=== PATIENT | female | born 1995 | race African-American/Black ===

== ENCOUNTER 2025-02-15 14:34 | Emergency (ER) | payer OTHER ==
[~2025-02-15] VITALS: Ht 157.5 cm; Wt 115.2 kg
[2025-02-15] MEDS ORDERED: NS 1,000 ML IV SCH (15:55)
[2025-02-15 16:16] LABS: BASOPHILS ABSOLUTE AUTO 0.05 K/mm3 (0.00-0.23); BASOPHILS PERCENT AUTO 1 % (0-2); EOSINOPHILS ABSOLUTE AUTO 0.15 K/mm3 (0.00-0.68); EOSINOPHILS PERCENT AUTO 2 % (0-6); Hematocrit 39.0 % (33.0-51.0); Hemoglobin 12.8 g/dL (11.5-16.0); IMMATURE GRAN ABSOLUTE AUTO 0.06 K/mm3 (0.00-0.10); IMMATURE GRAN PERCENT AUTO 1 % (0-1); LYMPHOCYTES ABSOLUTE AUTO 2.29 K/mm3 (0.84-5.20); LYMPHOCYTES PERCENT AUTO 31 % (21-46); MONOCYTES ABSOLUTE AUTO 0.72 K/mm3 (0.16-1.47); MONOCYTES PERCENT AUTO 10 % (4-13); Mean Corpuscular HGB Conc 32.8 g/dL (31.5-36.5); Mean Corpuscular Volume 88 fL (80-100); NEUTROPHILS ABSOLUTE AUTO 4.07 K/mm3 (1.96-9.15); NEUTROPHILS PERCENT AUTO 56 % (41-73); NRBC ABSOLUTE 0.00 K/mm3 (0.00-0.02); NRBC Auto 0.0 /100 WBC (0.0-0.2); Platelet Count 251 K/mm3 (150-400); RDW Coefficient Variation 12.7 % (11.7-14.2); RDW Standard Deviation 41.1 fL (35.1-46.3)
[2025-02-15 16:45] LABS: Anion Gap 10.0 mmol/L (3-11); Blood Urea Nitrogen 7.0 mg/dL (8-24); CO2, Blood 23.0 mmol/L (21-32); Calcium, Blood 8.9 mg/dL (8.5-10.1); Chloride, Blood 106.0 mmol/L (98-108); Creatinine, Blood 0.68 mg/dL (0.40-1.00); Glucose, Blood 156.0 mg/dL (70-99); Magnesium, Blood 1.8 mg/dL (1.6-2.4); Potassium, Blood 3.5 mmol/L (3.5-5.5); Sodium, Blood 135.0 mmol/L (136-145); Thyroid Stimulating Hormone 4.31 uIU/mL (0.360-4.800)
[2025-02-15] MEDS ORDERED: LORazepam 2 MG/ML 1ML Injection IV ONE (17:00)
[2025-02-15] MEDS ORDERED: LORA.5 PO (18:18)
== END 2025-02-15 18:37 | disposition home or self-care (01) ==
LOC: ER 14:34
PROVIDERS: Emergency Medicine
DX: F41.0 Panic disorder [episodic paroxysmal anxiety] (principal)
CPT/HCPCS: 71045; 71260; 80048; 83735; 84439; 84443; 85025; 85379; 93005; 93010; 96374-59; 99284-25; A9270; J2060; J7030; Q9967

== ENCOUNTER 2025-02-28 17:13 | Emergency (ER) | payer OTHER ==
[~2025-02-28] VITALS: Ht 157.5 cm; Wt 115.2 kg
[~2025-02-28 17:13] MED LIST: LORA.5 PO
[2025-02-28] MEDS ORDERED: NS 1,000 ML IV SCH (17:20)
[2025-02-28] MEDS ORDERED: Ondansetron HCl 2 MG / ML 2ML Vial IV ONE (17:20)
[2025-02-28] MEDS ORDERED: Ketorolac Tromethamine 15mg Vial IV ONE (17:20)
[2025-02-28] MEDS ORDERED: RISP.25 PO (18:43)
[2025-02-28] MEDS ORDERED: LORA.5 PO ×2 (18:43→19:36)
[2025-02-28] MEDS ORDERED: LORazepam 2 MG/ML 1ML Injection IV ONE (18:45)
[2025-02-28 18:51] LABS: BASOPHILS ABSOLUTE AUTO 0.05 K/mm3 (0.00-0.23); BASOPHILS PERCENT AUTO 1 % (0-2); EOSINOPHILS ABSOLUTE AUTO 0.09 K/mm3 (0.00-0.68); EOSINOPHILS PERCENT AUTO 1 % (0-6); Hematocrit 40.0 % (33.0-51.0); Hemoglobin 13.3 g/dL (11.5-16.0); IMMATURE GRAN ABSOLUTE AUTO 0.03 K/mm3 (0.00-0.10); IMMATURE GRAN PERCENT AUTO 0 % (0-1); LYMPHOCYTES ABSOLUTE AUTO 2.06 K/mm3 (0.84-5.20); LYMPHOCYTES PERCENT AUTO 28 % (21-46); MONOCYTES ABSOLUTE AUTO 0.59 K/mm3 (0.16-1.47); MONOCYTES PERCENT AUTO 8 % (4-13); Mean Corpuscular HGB Conc 33.3 g/dL (31.5-36.5); Mean Corpuscular Volume 86 fL (80-100); NEUTROPHILS ABSOLUTE AUTO 4.61 K/mm3 (1.96-9.15); NEUTROPHILS PERCENT AUTO 62 % (41-73); NRBC ABSOLUTE 0.00 K/mm3 (0.00-0.02); NRBC Auto 0.0 /100 WBC (0.0-0.2); Platelet Count 233 K/mm3 (150-400); RDW Coefficient Variation 12.7 % (11.7-14.2); RDW Standard Deviation 39.8 fL (35.1-46.3)
[2025-02-28 19:04] LABS: Alanine Aminotransfer (ALT/SGP 22.0 U/L (12-78); Albumin, Blood 3.7 g/dL (3.4-5.0); Albumin/Globulin Ratio 0.8 (0.8-1.8); Anion Gap 8.0 mmol/L (3-11); Aspartate Aminotrans (AST/SGOT 15.0 U/L (12-37); Bilirubin, Total 0.1 mg/dL (0.1-1.0); Blood Urea Nitrogen 11.0 mg/dL (8-24); CO2, Blood 27.0 mmol/L (21-32); Calcium, Blood 9.8 mg/dL (8.5-10.1); Chloride, Blood 106.0 mmol/L (98-108); Creatinine, Blood 0.67 mg/dL (0.40-1.00); Globulin, Blood 4.4 g/dL (2.2-4.0); Glucose, Blood 168.0 mg/dL (70-99); Potassium, Blood 3.7 mmol/L (3.5-5.5); Sodium, Blood 137.0 mmol/L (136-145); Total Protein, Blood 8.1 g/dL (6.4-8.2)
== END 2025-02-28 21:43 | disposition home or self-care (01) ==
LOC: ER 17:13
PROVIDERS: Student in an Organized Health Care Education/Training Program
DX: F41.0 Panic disorder [episodic paroxysmal anxiety] (principal); Z76.0 Encounter for issue of repeat prescription; Z79.899 Other long term (current) drug therapy
CPT/HCPCS: 71046; 80053; 84484; 85025; 93005; 93010; 96374; 99284-25; A9270; J2060

== ENCOUNTER 2025-03-01 13:19 | Emergency (ER) | payer OTHER ==
[~2025-03-01] VITALS: Ht 157.5 cm; Wt 24.5 kg
[~2025-03-01 13:19] MED LIST changes: +RISP.25 PO
[2025-03-01 14:47] LABS: BASOPHILS ABSOLUTE AUTO 0.05 K/mm3 (0.00-0.23); BASOPHILS PERCENT AUTO 1 % (0-2); EOSINOPHILS ABSOLUTE AUTO 0.06 K/mm3 (0.00-0.68); EOSINOPHILS PERCENT AUTO 1 % (0-6); Hematocrit 39.6 % (33.0-51.0); Hemoglobin 13.5 g/dL (11.5-16.0); IMMATURE GRAN ABSOLUTE AUTO 0.03 K/mm3 (0.00-0.10); IMMATURE GRAN PERCENT AUTO 0 % (0-1); LYMPHOCYTES ABSOLUTE AUTO 1.94 K/mm3 (0.84-5.20); LYMPHOCYTES PERCENT AUTO 26 % (21-46); MONOCYTES ABSOLUTE AUTO 0.74 K/mm3 (0.16-1.47); MONOCYTES PERCENT AUTO 10 % (4-13); Mean Corpuscular HGB Conc 34.1 g/dL (31.5-36.5); Mean Corpuscular Volume 86 fL (80-100); NEUTROPHILS ABSOLUTE AUTO 4.63 K/mm3 (1.96-9.15); NEUTROPHILS PERCENT AUTO 62 % (41-73); NRBC ABSOLUTE 0.00 K/mm3 (0.00-0.02); NRBC Auto 0.0 /100 WBC (0.0-0.2); Platelet Count 236 K/mm3 (150-400); RDW Coefficient Variation 12.9 % (11.7-14.2); RDW Standard Deviation 39.8 fL (35.1-46.3)
[2025-03-01 15:11] LABS: Alanine Aminotransfer (ALT/SGP 21.0 U/L (12-78); Albumin, Blood 3.7 g/dL (3.4-5.0); Albumin/Globulin Ratio 0.8 (0.8-1.8); Anion Gap 7.0 mmol/L (3-11); Aspartate Aminotrans (AST/SGOT 13.0 U/L (12-37); Bilirubin, Total 0.2 mg/dL (0.1-1.0); Blood Urea Nitrogen 10.0 mg/dL (8-24); CO2, Blood 27.0 mmol/L (21-32); Calcium, Blood 9.7 mg/dL (8.5-10.1); Chloride, Blood 104.0 mmol/L (98-108); Creatinine, Blood 0.65 mg/dL (0.40-1.00); Globulin, Blood 4.6 g/dL (2.2-4.0); Glucose, Blood 95.0 mg/dL (70-99); Potassium, Blood 3.7 mmol/L (3.5-5.5); Sodium, Blood 134.0 mmol/L (136-145); Thyroid Stimulating Hormone 2.96 uIU/mL (0.360-4.800); Total Protein, Blood 8.3 g/dL (6.4-8.2)
== END 2025-03-01 17:35 | disposition home or self-care (01) ==
LOC: ER 13:19
PROVIDERS: Student in an Organized Health Care Education/Training Program
DX: F41.0 Panic disorder [episodic paroxysmal anxiety] (principal); E87.1 Hypo-osmolality and hyponatremia; Z79.899 Other long term (current) drug therapy
CPT/HCPCS: 80053; 84439; 84443; 84481; 84484; 85025; 93005; 93010; 99283-25; A9270

== ENCOUNTER 2025-03-03 16:57 | Emergency (ER) | payer OTHER ==
[~2025-03-03] VITALS: Ht 157.5 cm; Wt 115.2 kg
[2025-03-03 17:36] LABS: BASOPHILS ABSOLUTE AUTO 0.05 K/mm3 (0.00-0.23); BASOPHILS PERCENT AUTO 1 % (0-2); EOSINOPHILS ABSOLUTE AUTO 0.12 K/mm3 (0.00-0.68); EOSINOPHILS PERCENT AUTO 2 % (0-6); Hematocrit 39.0 % (33.0-51.0); Hemoglobin 12.8 g/dL (11.5-16.0); IMMATURE GRAN ABSOLUTE AUTO 0.03 K/mm3 (0.00-0.10); IMMATURE GRAN PERCENT AUTO 0 % (0-1); LYMPHOCYTES ABSOLUTE AUTO 2.22 K/mm3 (0.84-5.20); LYMPHOCYTES PERCENT AUTO 30 % (21-46); MONOCYTES ABSOLUTE AUTO 0.69 K/mm3 (0.16-1.47); MONOCYTES PERCENT AUTO 9 % (4-13); Mean Corpuscular HGB Conc 32.8 g/dL (31.5-36.5); Mean Corpuscular Volume 87 fL (80-100); NEUTROPHILS ABSOLUTE AUTO 4.31 K/mm3 (1.96-9.15); NEUTROPHILS PERCENT AUTO 58 % (41-73); NRBC ABSOLUTE 0.00 K/mm3 (0.00-0.02); NRBC Auto 0.0 /100 WBC (0.0-0.2); Platelet Count 229 K/mm3 (150-400); RDW Coefficient Variation 12.8 % (11.7-14.2); RDW Standard Deviation 40.5 fL (35.1-46.3)
[2025-03-03 18:16] LABS: Alanine Aminotransfer (ALT/SGP 24.0 U/L (12-78); Albumin, Blood 3.5 g/dL (3.4-5.0); Albumin/Globulin Ratio 0.8 (0.8-1.8); Anion Gap 10.0 mmol/L (3-11); Aspartate Aminotrans (AST/SGOT 19.0 U/L (12-37); Bilirubin, Total 0.1 mg/dL (0.1-1.0); Blood Urea Nitrogen 12.0 mg/dL (8-24); CO2, Blood 25.0 mmol/L (21-32); Calcium, Blood 10.0 mg/dL (8.5-10.1); Chloride, Blood 107.0 mmol/L (98-108); Creatinine, Blood 0.74 mg/dL (0.40-1.00); Globulin, Blood 4.4 g/dL (2.2-4.0); Glucose, Blood 134.0 mg/dL (70-99); Potassium, Blood 3.9 mmol/L (3.5-5.5); Sodium, Blood 138.0 mmol/L (136-145); Total Protein, Blood 7.9 g/dL (6.4-8.2)
[2025-03-03] MEDS ORDERED: LORazepam 2 MG/ML 1ML Injection IV ONE (20:50)
[2025-03-04] MEDS ORDERED: HYDHCL25 PO (20:47)
== END 2025-03-03 22:46 | disposition home or self-care (01) ==
LOC: ER 16:57
PROVIDERS: Student in an Organized Health Care Education/Training Program
DX: F41.1 Generalized anxiety disorder (principal); Z79.899 Other long term (current) drug therapy
CPT/HCPCS: 71045; 71260; 80053; 84484; 85025; 85379; 93005; 93010; 96374-59; 99284-25; A9270; J2060; Q9967

== ENCOUNTER 2025-03-04 17:58 | Emergency (ER) | payer OTHER ==
[~2025-03-04] VITALS: Ht 157.5 cm; Wt 121.6 kg
[2025-03-04] MEDS ORDERED: Lidocaine/Tetracaine/Epinephr 3 ML GEL SYRINGE TOP ONE (19:30)
[2025-03-04] MEDS ORDERED: HYDHCL25 PO (20:47)
== END 2025-03-04 20:58 | disposition home or self-care (01) ==
LOC: ER 17:58
DX: F41.0 Panic disorder [episodic paroxysmal anxiety] (principal); Z79.899 Other long term (current) drug therapy
CPT/HCPCS: 99282; A9270

== ENCOUNTER 2025-03-05 17:39 | Emergency (ER) | payer OTHER ==
[~2025-03-05] VITALS: Ht 157.5 cm; Wt 121.6 kg
[~2025-03-05 17:39] MED LIST changes: +HYDHCL25 PO
[2025-03-06] MEDS ORDERED: LORA.5 PO (19:17)
== END 2025-03-05 21:30 | disposition home or self-care (01) ==
LOC: ER 17:39
DX: F41.9 Anxiety disorder, unspecified (principal); Z79.899 Other long term (current) drug therapy
CPT/HCPCS: 93005; 93010; 99283-25

== ENCOUNTER 2025-03-06 17:10 | Emergency (ER) | payer OTHER ==
[~2025-03-06] VITALS: Ht 165.1 cm; Wt 113.4 kg
[2025-03-06] MEDS ORDERED: LORazepam 2 MG/ML 1ML Injection IV ONE ×2 (17:40→19:15)
[2025-03-06 18:07] LABS: BASOPHILS ABSOLUTE AUTO 0.04 K/mm3 (0.00-0.23); BASOPHILS PERCENT AUTO 1 % (0-2); EOSINOPHILS ABSOLUTE AUTO 0.16 K/mm3 (0.00-0.68); EOSINOPHILS PERCENT AUTO 2 % (0-6); Hematocrit 36.3 % (33.0-51.0); Hemoglobin 11.9 g/dL (11.5-16.0); IMMATURE GRAN ABSOLUTE AUTO 0.07 K/mm3 (0.00-0.10); IMMATURE GRAN PERCENT AUTO 1 % (0-1); LYMPHOCYTES ABSOLUTE AUTO 1.96 K/mm3 (0.84-5.20); LYMPHOCYTES PERCENT AUTO 23 % (21-46); MONOCYTES ABSOLUTE AUTO 0.62 K/mm3 (0.16-1.47); MONOCYTES PERCENT AUTO 7 % (4-13); Mean Corpuscular HGB Conc 32.8 g/dL (31.5-36.5); Mean Corpuscular Volume 86 fL (80-100); NEUTROPHILS ABSOLUTE AUTO 5.74 K/mm3 (1.96-9.15); NEUTROPHILS PERCENT AUTO 67 % (41-73); NRBC ABSOLUTE 0.00 K/mm3 (0.00-0.02); NRBC Auto 0.0 /100 WBC (0.0-0.2); Platelet Count 213 K/mm3 (150-400); RDW Coefficient Variation 12.9 % (11.7-14.2); RDW Standard Deviation 40.8 fL (35.1-46.3)
[2025-03-06 18:33] LABS: Alanine Aminotransfer (ALT/SGP 23.0 U/L (12-78); Albumin, Blood 3.4 g/dL (3.4-5.0); Albumin/Globulin Ratio 0.9 (0.8-1.8); Anion Gap 8.0 mmol/L (3-11); Aspartate Aminotrans (AST/SGOT 17.0 U/L (12-37); Bilirubin, Total 0.2 mg/dL (0.1-1.0); Blood Urea Nitrogen 10.0 mg/dL (8-24); CO2, Blood 27.0 mmol/L (21-32); Calcium, Blood 9.3 mg/dL (8.5-10.1); Chloride, Blood 106.0 mmol/L (98-108); Creatinine, Blood 0.67 mg/dL (0.40-1.00); Globulin, Blood 3.9 g/dL (2.2-4.0); Glucose, Blood 138.0 mg/dL (70-99); Potassium, Blood 3.8 mmol/L (3.5-5.5); Sodium, Blood 137.0 mmol/L (136-145); Total Protein, Blood 7.3 g/dL (6.4-8.2)
[2025-03-06] MEDS ORDERED: LORA.5 PO (19:17)
== END 2025-03-06 19:39 | disposition home or self-care (01) ==
LOC: ER 17:10
PROVIDERS: Student in an Organized Health Care Education/Training Program
DX: F41.0 Panic disorder [episodic paroxysmal anxiety] (principal); R07.9 Chest pain, unspecified; R00.0 Tachycardia, unspecified; Z79.899 Other long term (current) drug therapy
CPT/HCPCS: 71046; 80053; 84484; 84703; 85025; 93005; 93010; 96374; 99284-25; J2060

== ENCOUNTER 2025-03-08 16:13 | Emergency (ER) | payer OTHER ==
[~2025-03-08] VITALS: Ht 157.5 cm; Wt 121.6 kg
== END 2025-03-08 16:55 | disposition home or self-care (01) ==
LOC: ER 16:13
DX: F41.0 Panic disorder [episodic paroxysmal anxiety] (principal); Z79.899 Other long term (current) drug therapy
CPT/HCPCS: 99282; A9270

== ENCOUNTER 2025-03-09 14:13 | Emergency (ER) | payer OTHER ==
[~2025-03-09] VITALS: Ht 157.5 cm; Wt 120.2 kg
[2025-03-10] MEDS ORDERED: RISP2 PO (02:06)
[2025-03-10] MEDS ORDERED: RISP3 PO (02:06)
== END 2025-03-09 15:44 | disposition home or self-care (01) ==
LOC: ER 14:13
DX: F41.0 Panic disorder [episodic paroxysmal anxiety] (principal); Z79.899 Other long term (current) drug therapy; Z59.89 Other problems related to housing and economic circumstances
CPT/HCPCS: 99283; A9270

== ENCOUNTER 2025-03-09 19:06 | Emergency (ER) | payer OTHER ==
[~2025-03-09] VITALS: Ht 157.5 cm; Wt 121.6 kg
[2025-03-10] MEDS ORDERED: RISP3 PO (02:06)
[2025-03-10] MEDS ORDERED: RISP2 PO (02:06)
== END 2025-03-10 02:12 | disposition home or self-care (01) ==
LOC: ER 19:06
DX: F41.0 Panic disorder [episodic paroxysmal anxiety] (principal); Z59.9 Problem related to housing and economic circumstances, unspecified; Z79.899 Other long term (current) drug therapy
CPT/HCPCS: 93005; 93010; 99283-25; A9270

== ENCOUNTER 2025-03-10 08:21 | Emergency (ER) | payer OTHER ==
[~2025-03-10] VITALS: Ht 157.5 cm; Wt 121.6 kg
[~2025-03-10 08:21] MED LIST changes: +RISP2 PO; +RISP3 PO
== END 2025-03-10 09:00 | disposition home or self-care (01) ==
LOC: ER 08:21
DX: F41.9 Anxiety disorder, unspecified (principal)
CPT/HCPCS: 99282

== ENCOUNTER 2025-03-12 08:49 | Emergency (ER) | payer OTHER ==
[~2025-03-12] VITALS: Ht 157.5 cm; Wt 121.6 kg
[2025-03-12] MEDS ORDERED: Ativan1 MG PO (09:29)
== END 2025-03-12 09:31 | disposition home or self-care (01) ==
LOC: ER 08:49
DX: F41.0 Panic disorder [episodic paroxysmal anxiety] (principal); Z79.899 Other long term (current) drug therapy
CPT/HCPCS: 99283

== ENCOUNTER 2025-03-13 11:23 | Emergency (ER) | payer OTHER ==
[~2025-03-13] VITALS: Ht 162.6 cm; Wt 97.5 kg
[~2025-03-13 11:23] MED LIST changes: +Ativan1 MG PO
[2025-03-14] MEDS ORDERED: CLON.5 (11:20)
[2025-03-14] MEDS ORDERED: ALBU90OI (11:20)
[2025-03-14] MEDS ORDERED: OLAN5 (11:21)
[2025-03-14] MEDS ORDERED: CATAPRES0.1 MG PO (11:21)
== END 2025-03-13 13:35 | disposition home or self-care (01) ==
LOC: ER 11:23
DX: F41.1 Generalized anxiety disorder (principal); F25.9 Schizoaffective disorder, unspecified
CPT/HCPCS: 99282; A9270

== ENCOUNTER 2025-03-14 09:08 | Emergency (ER) | payer OTHER ==
[~2025-03-14] VITALS: Ht 157.5 cm; Wt 120.7 kg
[2025-03-14] MEDS ORDERED: ALBU90OI (11:20)
[2025-03-14] MEDS ORDERED: CLON.5 (11:20)
[2025-03-14] MEDS ORDERED: CATAPRES0.1 MG PO (11:21)
[2025-03-14] MEDS ORDERED: OLAN5 (11:21)
== END 2025-03-14 11:54 | disposition home or self-care (01) ==
LOC: ER 09:08
DX: F41.0 Panic disorder [episodic paroxysmal anxiety] (principal); Z79.899 Other long term (current) drug therapy
CPT/HCPCS: 99283

== ENCOUNTER 2025-03-16 12:48 | Emergency (ER) | payer OTHER ==
[~2025-03-16] VITALS: Ht 157.5 cm; Wt 121.6 kg
[~2025-03-16 12:48] MED LIST changes: +ALBU90OI; +CATAPRES0.1 MG PO; +CLON.5; +OLAN5
== END 2025-03-16 15:38 | disposition home or self-care (01) ==
LOC: ER 12:48
DX: F41.0 Panic disorder [episodic paroxysmal anxiety] (principal); F20.9 Schizophrenia, unspecified
CPT/HCPCS: 99283; A9270